=== PATIENT | female | born 1990 | race African-American/Black ===

== ENCOUNTER → 2021-12-26 | Outpatient (CLI) | payer OTHER ==
--- NOTE | 2021-12-26 10:15 | RAD ---
Study: XR LUMBAR SPINE 2-3V Indication: Low back pain. Comparison: None. Findings: 5 nonrib-bearing lumbar vertebral elements. Levocurvature with the apex at L3-L4. Straightening of lo rdosis. Maintained vertebral body and disc space height. No listhesis. No advanced facet arthrosis. Impression: Lumbar levocurvature and straightening of lordosis. No accelerated discogenic arthrosis or facet dege neration. Electronically signed by: LEXY GRIFFIN MD (12/26/2021 10:13 AM) [id number]
== END ==
LOC: RAD 08:49
PROVIDERS: ATTEND Family Medicine
DX: Z02.71 Encounter for disability determination (principal); M40.46 Postural lordosis, lumbar region; M43.8X6 Other specified deforming dorsopathies, lumbar region
CPT/HCPCS: 72100